=== PATIENT | male | born 1970 | race Caucasian/White ===

== ENCOUNTER 2016-10-25 10:06 | Day surgery (SDC) | payer OTHER ==
[2016-10-24 11:20] VITALS: BMI 42.7
[2016-10-25] MEDS ORDERED: PROPOFOL 40 ML ONE (10:55)
[2016-10-25] MEDS ORDERED: LIDOCAINE HCL/PF 2% SDV 5ML VIAL ONE (10:55)
[2016-10-25] MEDS ORDERED: KETAMINE HCL 500 MG/10 ML VIAL ONE (11:00)
[2016-10-25 12:01] VITALS: TEMP 98.1
[2016-10-25 13:00] VITALS: BP 135/88
[2016-10-25 13:38] VITALS: PULSE 79
--- NOTE | 2016-10-26 10:59 | PATH ---
Surgical Pathology Report Patient Name: ODIN VARGAS [facility]. Rec. #: [id number] /Age/Gender: 1970 (Age: 45) / M Account: [id number] Location: [facility]-ENDOSCOPY Taken: 10/25/2016 Received: 10/25/2016 Reported: 10/26/2016 Physicians: Bairon Garcia D.O. Specimen(s) Received BX DISTAL ESOPHAGUS Clinical History GERD Esophagitis, reflux Final Diagnosis DISTAL ESOPHAGUS, BIOPSY: SQUAMOUS AND GASTRIC MUCOSA WITH CHRONIC INFLAMMATION AND PAPILLOMATOSIS SUGGESTIVE OF REFLUX ESOPHAGITIS. NO INTESTINAL METAPLASIA IDENTIFIED (NO LUDWIG'S IDENTIFIED). Electronically Signed Adrian Womack M.D. Gross Description Received in formalin, labeled "biopsy distal esophagus" are 2 puga, irregular portions of soft tissue measuring 0.1 and 0.3 cm. in greatest dimension. The specimens are submitted in toto in one cassette. /10/25/201610/25/2016
== END 2016-10-25 13:38 | disposition home or self-care (01) ==
LOC: JASU-ENDO 10:06
PROVIDERS: ATTEND Internal Medicine Gastroenterology
PROC: 0DB48ZX Excision of Esophagogastric Junction, Via Natural or Artificial Opening Endoscopic, Diagnostic (ICD-10-PCS; principal; 2016-10-25 11:00)
DX: K25.9 Gastric ulcer, unspecified as acute or chronic, without hemorrhage or perforation (principal)
CPT/HCPCS: 88305-TC

== ENCOUNTER 2016-12-25 08:00 | Day surgery (SDC) | payer OTHER ==
[2016-12-25 08:10] VITALS: BMI 41.6
[2016-12-25] MEDS ORDERED: LIDOCAINE HCL/PF 2% SDV 5ML VIAL ONE (09:14)
[2016-12-25] MEDS ORDERED: PROPOFOL 20 ML ONE ×5 (09:14)
[2016-12-25 09:54] VITALS: TEMP 97.5
--- NOTE | 2016-12-25 10:04 | PN ---
Progress Note (short form) - Note Progress Note: post procedure Mr. Torres states that for a couple of days he had diarrhea alternating with constipation and RLQ pain. He says that it has improved overall. On exam, mild TTP RLQ. He did not seek medical attention CBC/BMP_ and CRP ordered for today and I advised him that if he still is having pain / fevers he will need to be evaluated in an ER setting.
[2016-12-25 10:50] LABS: BASOPHIL 0.7 % (0-2.0); EOSINOPHIL 3.2 % (0-4.5); MCH 29.2 pg (25.7-33.7); MEAN CELL VOLUME 83.4 fl (80-96); NEUTROPHILS 51.5 % (42.8-82.8); PLATELET COUNT 155 K/MM3 (134-434); RDW 13.2 % (11.9-15.9); WHITE BLOOD COUNT 4.8 K/mm3 (4.0-10.0)
[2016-12-25 11:00] VITALS: BP 133/64; PULSE 71
[2016-12-25 11:11] LABS: CALCIUM 8.7 mg/dL (8.5-10.1); COCKROFT - GAULT 163.98
--- NOTE | 2016-12-26 11:48 | PATH ---
Surgical Pathology Report Patient Name: ODIN VARGAS [facility]. Rec. #: [id number] /Age/Gender: 1970 (Age: 46) / M Account: [id number] Location: [facility]-ENDOS[facility] Taken: 12/25/2016 Received: 12/25/2016 Reported: 12/26/2016 Physicians: Bairon Garcia D.O. Specimen(s) Received BX GE JUNCTION Clinical History GERD Hiatal hernia Final Diagnosis GE JUNCTION, BIOPSY: SQUAMOCOLUMNAR JUNCTIONAL MUCOSA WITH ACTIVE AND CHRONIC INFLAMMATION AND INTESTINAL METAPLASIA (SEE COMMENT). NEGATIVE FOR DYSPLASIA. Comment: The histologic findings would be compatible with Landis's esophagus in proper endoscopic settings. Endoscopic correlations and follow up are suggested. Electronically Signed Baldo Santo M.D. Gross Description Received in formalin, labeled "biopsy GE junction" are 4 puga, irregular portions of soft tissue ranging from 0.2-0.7 cm. in greatest dimension. The specimens are submitted in toto in one cassette. /12/25/2016 saudi12/25/2016
== END 2016-12-25 11:00 | disposition home or self-care (01) ==
LOC: JASU-ENDO 08:00
PROVIDERS: ATTEND Internal Medicine Gastroenterology
PROC: 0DB58ZX Excision of Esophagus, Via Natural or Artificial Opening Endoscopic, Diagnostic (ICD-10-PCS; principal; 2016-12-25 09:00)
DX: K22.10 Ulcer of esophagus without bleeding (principal); K44.9 Diaphragmatic hernia without obstruction or gangrene
CPT/HCPCS: 36415; 80048; 85025; 86140; 88305-TC

== ENCOUNTER 2017-10-06 12:10 | Inpatient (IN) | payer OTHER ==
[2017-10-06 12:20] VITALS: BMI 45.6
[2017-10-06] MEDS ORDERED: LOSARTAN POTASSIUM 50 MG TABLET (FP) PO ONE (13:40)
--- NOTE | 2017-10-06 13:41 | PDOC ---
*Physical Exam - Vital Signs Last Vital Signs Temp Pulse Resp BP Pulse Ox 98.2 F 92 H 18 142/95 100 10/06/17 12:14 10/06/17 14:45 10/06/17 14:45 10/06/17 14:45 10/06/17 14:45 <Ivon Morel - Last Filed: 10/06/17 15:18> - Vital Signs Last Vital Signs Temp Pulse Resp BP Pulse Ox 98.2 F 98 H 18 163/83 99 10/06/17 12:14 10/06/17 12:14 10/06/17 12:14 10/06/17 12:14 10/06/17 12:14 - Physical Exam Comments: 10/06/17 14:33 morbidly obesed male in NAD General Appearance: Yes: Appropriately Dressed. No: Apparent Distress HEENT: positive: Normal Voice Neck: positive: Supple Respiratory/Chest: positive: Lungs Clear, Normal Breath Sounds. negative: Respiratory Distress Cardiovascular: positive: Regular Rate, S1, S2 Gastrointestinal/Abdominal: positive: Soft. negative: Tender Extremity: positive: Normal Inspection. negative: Pedal Edema Integumentary: positive: Dry, Warm Neurologic: positive: Fully Oriented, Alert, Normal Mood/Affect <Jesus Cali - Last Filed: 10/06/17 15:50> ED Treatment Course - LABORATORY CBC & Chemistry Diagram: 10/06/17 14:00 10/06/17 14:00 - ADDITIONAL ORDERS Additional order review: Laboratory Results 10/06/17 10/06/17 10/06/17 14:00 14:00 14:00 D-Dimer 311 Sodium 142 Potassium 4.1 Chloride 104 Carbon Dioxide 27 Anion Gap 11 BUN 12 Creatinine 1.1 Creat Clearance w eGFR > 60 Random Glucose 86 Calcium 8.7 Magnesium 1.8 Total Bilirubin 0.3 D AST 29 D ALT 39 D Alkaline Phosphatase 62 D Creatine Kinase 510 H Creatine Kinase Index 0.8 CK-MB (CK-2) 4.353 H Troponin I < 0.02 B-Natriuretic Peptide 21.79 Total Protein 7.1 Albumin 3.7 TSH 3.18 D 10/06/17 14:00 RBC 5.42 MCV 82.5 MCHC 34.7 RDW 13.7 MPV 8.6 Neutrophils % 46.2 Lymphocytes % 41.4 H Monocytes % 8.4 Eosinophils % 3.6 Basophils % 0.4 - Medications Given in the ED: ED Medications Discontinued Medications Generic Name Dose Route Start Last Admin Trade Name Esdras PRN Reason Stop Dose Admin Losartan Potassium 50 mg 10/06/17 13:40 10/06/17 14:07 Cozaar - PO 10/06/17 13:41 50 mg ONCE ONE Administration - Consult/PCP Time Called: 15:18 (called the service for Dr. Thurman) <Ivon Morel - Last Filed: 10/06/17 15:18> - LABORATORY CBC & Chemistry Diagram: 10/06/17 14:00 10/06/17 14:00 <Jesus Cali - Last Filed: 10/06/17 15:50> Medical Decision Making - Medical Decision Making 10/06/17 13:40 46-year-old male, morbidly obese, status post post robotic sleeve gastrectomy 2015, gastritis, diverticulitis, HLD, HTN, hypothyroid, stopped taking all his meds 2 months ago because "I am too young to be taking medications" per pt, s/p negative exercise stress test 2 months ago, status post cath ~10 years ago but does not know results per pt, f/u with Dr Vargas of cardiology, here with profound weakness and dyspnea on exertion for 2 weeks. Complaining of palpitations when laying down only. No chest pain at this time. Develop dry cough today. No lower extremity swelling, fever or chills See exam SANCHEZ w/ fatigue Non-compliant w/ losartan Neg stress test 2 months ago per pt BP 163/83 w/ clear chest/lungs and no edema ?new onset CHF vs ACS, unlikely PE given duration of sxs, doubt metabolic or infectious -ekg -cxr -labs including BNP -anticipate admission 10/06/17 14:45 10/06/17 15:08 Labs unremarkable. Pt remains stable. BP 142/95 after dose of losartan. Will contact pt's cards to discuss dispo 10/06/17 15:38 Case d/w Dr Thurman who states he was the one who recommended that pt have a nuclear stress done done. Wants pt admitted to tele for further w/u. Discussed case with Dr. Solis who is covering for patient's digital strategist senior manager, Dr. Vargas <Jesus Cali - Last Filed: 10/06/17 15:50> *DC/Admit/Observation/Transfer <Ivon Morel - Last Filed: 10/06/17 15:18> - Discharge Dispostion Admit: Yes <Sis Cali-Hayley - Last Filed: 10/06/17 15:50> Diagnosis at time of Disposition: Dyspnea on exertion Fatigue Qualifiers: Fatigue type: unspecified Qualified Code(s): R53.83 - Other fatigue - Discharge Dispostion Condition at time of disposition: Fair - Referrals Referrals: Shayne Thurman MD [Primary Care Provider] - - Patient Instructions - Post Discharge Activity
--- NOTE | 2017-10-06 13:42 | PDOC ---
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 Patient reports that he "was feeling bad last week, like chills, and just did not feel good, but it got a little better the last two days, and then today I just felt terrible." He denies any chest pain but reports that he has shortness of breath and that "I feel like I just can't breathe well after walking a few steps," and he also complains of palpitations. He also complains of a left sided headache that he attributes to his "chronic sinusitis." He denies any URI symptoms last week including sneezing, runny nose, or coughing, but reports that he "just started coughing a little today." Patient admits to being non compliant with medications, stating that he "stopped taking all my medications about 2 months ago," including his hypertension, GERD, and thyroid medications. No recent travel or sick contacts. PAST MEDICAL HISTORY: Denies past medical history FAMILY HISTORY: Denies SOCIAL HISTORY: Denies tobacco, alcohol, illicit drug use. SURGICAL HISTORY: Denies ALLERGIES: No known drug allergies REVIEW OF SYSTEMS General/Constitutional: Generalized fatigue, discomfort. Denies fever or chills. HEENT: Denies change in vision. Denies ear pain or discharge. Denies sore throat. Cardiovascular: Shortness of breath, dyspnea on exertion. Denies chest pain. Respiratory: "A little coughing today." Denies wheezing, or hemoptysis. Gastrointestinal: Denies nausea, vomiting, diarrhea or constipation. Denies rectal bleeding. Genitourinary: Denies dysuria, frequency, or change in urination. Musculoskeletal: Body aches, "my arms feel heavy." Skin and breasts: Denies rash or easy bruising. Neurologic: Denies headache, vertigo, loss of consciousness, or loss of sensation. PHYSICAL EXAM General Appearance: Well-appearing, appropriately dressed. No apparent distress. HEENT: EOMI, PERRLA. No conjunctival pallor. No photophobia, scleral icterus. Respiratory/Chest: Lungs CTAB. No chest tenderness, respiratory distress, accessory muscle use. No crackles, rales, rhonchi, stridor, wheezing, dullness Cardiovascular: Tachycardic to 98. RRR. S1, S2. Vascular Pulses: Dorsalis-Pedis (R): 2+, Dorsalis-Pedis (L): 2+ Gastrointestinal/Abdominal: Normal bowel sounds. Abdomen soft, non-distended. No tenderness or rebound tenderness. No organomegaly, pulsatile mass, guarding , hernia, hepatomegaly, splenomegaly. Lymphatic: No adenopathy, tenderness. Musculoskeletal/Extremities: Normal inspection. FROM of all extremities, normal capillary refill. Pelvis Stable. No CVA tenderness. No tenderness to extremities, pedal edema, swelling, erythema or deformity. Integumentary: Appropriate color, dry, warm. No cyanosis, erythema, jaundice or rash Neurologic: marketing database coordinator II-XII intact. Fully oriented, alert. Appropriate mood/affect. Motor strength 5/5. No appreciable EOM palsy, facial droop or sensory deficit. Past History - Past Medical History Allergies/Adverse Reactions: Allergies Allergy/AdvReac Type Severity Reaction Status Date / Time No Known Drug Allergies Allergy Verified 10/06/17 12:21 Home Medications: Ambulatory Orders Losartan Potassium 50 mg PO DAILY 10/29/13 Levothyroxine [Synthroid -] 0.025 mg PO DAILY 10/19/14 Keiser-3 Acid Ethyl Esters [Lovaza] 1 gm PO DAILY 10/24/16 Topiramate [Topamax] 50 mg PO BID 10/24/16 Omeprazole 20 mg PO DAILY 12/21/16 Ranitidine [Zantac -] 150 mg PO BID #0 tablet 12/25/16 Anemia: No Asthma: No Cancer: No Cardiac Disorders: No CVA: No COPD: No CHF: No Dementia: No Diabetes: Yes (ELEVATED GLUCOSES-LATENT DIABETES) GI Disorders: Yes (RECURRENT DIVERTICULITIS,DIVERTICULosis, barretts esophagus) Disorders: Yes (PROSTATIS) HTN: Yes Hypercholesterolemia: Yes Liver Disease: Yes (NAFLD WITH BIOPSY) Seizures: No Thyroid Disease: Yes - Surgical History Abdominal Surgery: Yes (COLON RESECTION, GASTRIC SLEEVE (2016)) Appendectomy: No Cardiac Surgery: No Cholecystectomy: No Lung Surgery: No Neurologic Surgery: No Orthopedic Surgery: Yes (CARPAL TUNNEL SX) - Immunization History Immunization Up to Date: Yes - Suicide/Smoking/Psychosocial Hx Smoking Status: No Smoking History: Never smoked Have you smoked in the past 12 months: No Number of Cigarettes Smoked Daily: 0 Hx Alcohol Use: No Drug/Substance Use Hx: No Substance Use Type: Alcohol Hx Substance Use Treatment: No *Physical Exam - Vital Signs Last Vital Signs Temp Pulse Resp BP Pulse Ox 98.2 F 98 H 18 163/83 99 10/06/17 12:14 10/06/17 12:14 10/06/17 12:14 10/06/17 12:14 10/06/17 12:14 ED Treatment Course - RADIOLOGY Radiology Studies Ordered: Category Date Time Status CHEST PA & LAT [RAD] Stat Radiology 10/06/17 13:07 Ordered Medical Decision Making - Medical Decision Making 10/06/17 13:42 44 year old obese male with a significant PMH of HTN, HLD, fatty liver disease , umbilical hernia, diverticulitis, 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 Patient is well appearing but given generalized fatigue and new dyspnea on exertion, there is concern for cardiac etiology. Will transfer to main ED. Case discussed with FAHAD Cali, who accepts patient to main ED. *DC/Admit/Observation/Transfer - Referrals Referrals: Shayne Thurman MD [Primary Care Provider] - - Patient Instructions - Post Discharge Activity
[2017-10-06] MEDS ORDERED: LOSARTAN POTASSIUM 25 MG TABLET ONE (14:04)
[2017-10-06 14:08] LABS: BASO % 0.4 % (0-2.0); EOS % 3.6 % (0-4.5); HEMATOCRIT 44.7 % (35.4-49); HEMOGLOBIN 15.5 GM/dL (11.7-16.9); LYMPH % 41.4 % (8-40); MCH 28.7 pg (25.7-33.7); MCHC 34.7 g/dl (32.0-35.9); MEAN CELL VOLUME 82.5 fl (80-96); MEAN PLT VOLUME 8.6 fl (7.5-11.1); MONO % 8.4 % (3.8-10.2); NEUT % 46.2 % (42.8-82.8); PLATELET COUNT 232 K/MM3 (134-434); RBC 5.42 M/mm3 (4.00-5.60); RDW 13.7 % (11.9-15.9); WHITE BLOOD COUNT 6.3 K/mm3 (4.0-10.0)
[2017-10-06 14:29] LABS: CHLORIDE 104 mmol/L (98-107); POTASSIUM 4.1 mmol/L (3.5-5.1); SODIUM 142 mmol/L (136-145)
[2017-10-06 14:34] LABS: ALBUMIN 3.7 g/dl (3.4-5.0); ANION GAP 11 (8-16); BILIRUBIN,TOTAL 0.3 mg/dL (0.2-1.0); BLOOD UREA NITROGEN 12 mg/dL (7-18); CALCIUM 8.7 mg/dL (8.5-10.1); CO2 27 mmol/L (21-32); CREATININE 1.1 mg/dL (0.7-1.3); GLUCOSE,RANDOM 86 mg/dL (74-106); SGOT/AST 29 U/L (15-37); SGPT/ALT 39 U/L (12-78); TOT PROT 7.1 g/dl (6.4-8.2)
[2017-10-06 14:38] LABS: ALK PHOS 62 U/L (45-117); N-TERMINAL BNP 21.79 pg/ml (5-125)
[2017-10-06 15:18] LABS: URINE APPEARANCE CLEAR; URINE BILIRUBIN NEGATIVE (NEGATIVE); URINE BLOOD NEGATIVE (NEGATIVE); URINE COLOR YELLOW; URINE GLUCOSE (UA) NEGATIVE (NEGATIVE); URINE KETONE NEGATIVE (NEGATIVE); URINE LEUK ESTERASE NEGATIVE (NEGATIVE); URINE NITRITE NEGATIVE (NEGATIVE)
[2017-10-06 15:24] LABS: URINE PROTEIN 2+ (NEGATIVE)
[2017-10-06] MEDS ORDERED: IBUPROFEN 400 MG TABLET (FP) PO ONE (19:51)
[2017-10-06] MEDS ORDERED: ACETAMINOPHEN 325 MG TABLET (FP) PO PRN (20:57)
[2017-10-06] MEDS: HEPARIN NA (PORCINE) 5,000 UNITS/ML 1ML VIAL SQ SCH (21:37)
[2017-10-06] MEDS ORDERED: ATORVASTATIN CA 40 MG TABLET (FP) PO SCH (22:00)
--- NOTE | 2017-10-06 22:05 | CON.CARD ---
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 acutely worsened yesterday when he noted dyspnea walking from car to house. Typically walks up 3 flights of stairs daily at work. Has been able to do so slowly without stopping to rest. Stopped going to the gym 2 months ago b/c of sx's of intermittent fatigue/wagoner. had ETT and echo 05/2017 for evaluation of chest discomfort --> no recurrence since. Is followed for his [employer] exposure, has had pulmonary testing done in the past. Results unclear, but patient denies diagnosis of pulmonary disease + palps, regular, pounding sensation. not described as rapid + nausea with dry heaves over the past 2 days. + 1 episode of diarrhea last week. + chronic sinusitis with associated sinus congestion and pain as well as h/a + fevers and sweats today and last week. sleeps with 5 pillows due to juan, stable. no orthopnea, pnd, le edema, bleeding, transient neurologic symptoms. no rashes, visual disturbances, cough pmhx/pshx: per hpi family hx: mom cabg 60s, dad cabg 40s. son with vsd c/b [place] s/p repair social hx: former smoker, no significant etoh. 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: per hpi Ambulatory Orders Losartan Potassium 50 mg PO DAILY 10/29/13 Levothyroxine [Synthroid -] 0.025 mg PO DAILY 10/19/14 per office notes also on lovaza Current Medications Acetaminophen (Tylenol -) 650 mg PO Q4H PRN PRN Reason: PAIN LEVEL 4 - 6 Aspirin (Ecotrin -) 81 mg PO DAILY [facility] Atorvastatin Calcium (Lipitor -) 40 mg PO HS [facility] Last Admin: 10/06/17 21:37 Dose: 40 mg Heparin Sodium (Porcine) (Heparin -) 5,000 unit SQ BID [facility] Last Admin: 10/06/17 21:37 Dose: 5,000 unit Levothyroxine Sodium (Synthroid -) 25 mcg PO 0700 [facility] Losartan Potassium (Cozaar -) 50 mg PO DAILY [facility] Vital Signs - 24 hr 10/06/17 10/06/17 10/06/17 12:14 14:45 15:50 Temperature 98.2 F Pulse Rate 98 H Pulse Rate [ 92 H Right Radial] Respiratory 18 18 Rate Blood Pressure 163/83 Blood Pressure 142/95 [Left Arm] O2 Sat by Pulse 99 100 98 Oximetry (%) 10/06/17 10/06/17 16:00 18:50 Temperature 98.1 F Pulse Rate 81 90 Pulse Rate [ Right Radial] Respiratory 18 20 Rate Blood Pressure 144/98 133/94 Blood Pressure [Left Arm] O2 Sat by Pulse 98 Oximetry (%) Intake & Output 10/04/17 10/05/17 10/06/17 10/07/17 06:59 06:59 07:59 07:59 Weight 300 lb nad, calm jvd tds, neck supple ctab, nl effort rrr nl s1, s2 no mrg + bs soft nt nd, obese, no hsm ext without e/c/c + dp/pt aaox3 no jaundice, diaphoresis CBC, BMP 10/06/17 14:00 10/06/17 14:00 Laboratory Tests 08/02/15 10/06/17 10/06/17 15:08 14:00 14:00 D-Dimer 311 Magnesium Total Bilirubin 0.3 D AST 29 D ALT 39 D Alkaline Phosphatase 62 D Creatine Kinase 323 H D 510 H Creatine Kinase Index 0.8 CK-MB (CK-2) 4.353 H Troponin I < 0.02 B-Natriuretic Peptide 21.79 Albumin 3.7 TSH 3.18 D 10/06/17 14:00 D-Dimer Magnesium 1.8 Total Bilirubin AST ALT Alkaline Phosphatase Creatine Kinase Creatine Kinase Index CK-MB (CK-2) Troponin I B-Natriuretic Peptide Albumin TSH ekg nsr, lad, incomplete rbbb. inferior q waves. similar to priors tele: nsr ETT 05/2017: 10.1 mets. no ischemic changes echo 05/2017: nl lv/rv/valves. cath 04/2004: normal cors cath 06/2007: normal cors mibi 03/2015: no ischemia, nl lvef. 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 + family hx of premature cad. ce's neg x 1, ekg without acute ischemic changes. con't devin. recent echo wnl. stress test in am - con't asa, statin for now. - d-dimer negative. infectious/pulmonary work up per pmd - will review [facility] [place] records for prior pulm testing. 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 htn - con't losartan hl - con't statin for now. if stress test negative, can stop statin and resume prior lovaza dose. juan - declines cpap
[2017-10-06 22:11] LABS: CHOLESTEROL 189 mg/dL (50-200); HDL CHOLESTEROL 33 mg/dL (40-60); LDL CHOLESTEROL (ONLY SJRH) 113 mg/dL (5-100); TRIGLYCERIDES 400 mg/dL (35-160)
[2017-10-06 22:13] LABS: N-TERMINAL BNP 14.37 pg/ml (5-125)
[2017-10-07] MEDS ORDERED: INSULIN (NOVOLOG) ASPART 100 UNITS/ML 10ML VIAL ONE (06:38)
[2017-10-07] MEDS ORDERED: LEVOTHYROXINE NA 25 MCG TABLET (FP) PO SCH (07:00)
[2017-10-07 07:16] LABS: BASO % 1.2 % (0-2.0); EOS % 5.9 % (0-4.5); HEMATOCRIT 43.1 % (35.4-49); HEMOGLOBIN 14.8 GM/dL (11.7-16.9); LYMPH % 49.4 % (8-40); MCH 28.5 pg (25.7-33.7); MCHC 34.3 g/dl (32.0-35.9); MEAN PLT VOLUME 8.8 fl (7.5-11.1); MONO % 7.6 % (3.8-10.2); NEUT % 35.9 % (42.8-82.8); PLATELET COUNT 220 K/MM3 (134-434); RBC 5.19 M/mm3 (4.00-5.60); RDW 13.5 % (11.9-15.9); WHITE BLOOD COUNT 5.6 K/mm3 (4.0-10.0)
[2017-10-07 07:30] LABS: ALBUMIN 3.6 g/dl (3.4-5.0); ANION GAP 7 (8-16); BLOOD UREA NITROGEN 14 mg/dL (7-18); CALCIUM 8.4 mg/dL (8.5-10.1); CHLORIDE 105 mmol/L (98-107); CO2 28 mmol/L (21-32); GLUCOSE,RANDOM 107 mg/dL (74-106); POTASSIUM 4.2 mmol/L (3.5-5.1); SODIUM 140 mmol/L (136-145)
[2017-10-07 07:38] LABS: ALK PHOS 49 U/L (45-117); BILIRUBIN,TOTAL 0.6 mg/dL (0.2-1.0); SGOT/AST 25 U/L (15-37); SGPT/ALT 35 U/L (12-78); TOT PROT 6.5 g/dl (6.4-8.2)
--- NOTE | 2017-10-07 08:10 | HP ---
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 Patient reports that he "was feeling bad last week, like chills, and just did not feel good, but it got a little better, and then yesterday felt terrible." He denies any chest pain but reports that he has shortness of breath and that "I feel like I just can't breathe well after walking a few steps," and he also complains of palpitations. He also complains of a left sided headache that he attributes to his "chronic sinusitis." He denies any URI symptoms last week including sneezing, runny nose , or coughing, but reports that he "just started coughing a little today." Patient admits to being non compliant with medications, stating that he " stopped taking all my medications about 2 months ago," including his hypertension, GERD, and thyroid medications. - Past Medical History Cardiovascular: Yes: HTN, Hyperlipdemia Pulmonary: Yes: Sleep Apnea Gastrointestinal: Yes: Diverticulitis, Gastritis, GERD - Smoking History Smoking history: Never smoked Have you smoked in the past 12 months: No Aproximately how many cigarettes per day: 0 - Alcohol/Substance Use Hx Alcohol Use: No Home Medications - Allergies Allergies/Adverse Reactions: Allergies Allergy/AdvReac Type Severity Reaction Status Date / Time No Known Drug Allergies Allergy Verified 10/06/17 12:21 - Home Medications Home Medications: Ambulatory Orders Losartan Potassium 50 mg PO DAILY 10/29/13 Levothyroxine [Synthroid -] 0.025 mg PO DAILY 10/19/14 Physical Examination Vital Signs: Vital Signs Temperature 97.6 F 10/07/17 06:00 Pulse Rate 78 10/07/17 06:00 Respiratory Rate 17 10/07/17 06:00 Blood Pressure 125/81 10/07/17 06:00 O2 Sat by Pulse Oximetry (%) 95 10/06/17 22:00 Cardiovascular: Yes: Regular Rate and Rhythm Respiratory: Yes: Regular, CTA Bilaterally Gastrointestinal: Yes: Normal Bowel Sounds, Soft Edema: No Labs: CBC, BMP 10/07/17 06:34 10/07/17 06:34 Problem List - Problems (1) Chest pain Assessment/Plan: R/O CAD STRESS TEST CARDIO ON BOARD ASA Code(s): R07.9 - CHEST PAIN, UNSPECIFIED (2) Dyspnea on exertion Assessment/Plan: ABOVE CTA PULM Code(s): R06.09 - OTHER FORMS OF DYSPNEA (3) Fatigue Assessment/Plan: ABOVE Code(s): R53.83 - OTHER FATIGUE Qualifiers: Fatigue type: unspecified Qualified Code(s): R53.83 - Other fatigue (4) HTN (hypertension) Assessment/Plan: ARB AWAIT STRESS TEST Code(s): I10 - ESSENTIAL (PRIMARY) HYPERTENSION (5) Hyperlipemia Assessment/Plan: STATIN Code(s): E78.5 - HYPERLIPIDEMIA, UNSPECIFIED
--- NOTE | 2017-10-07 08:54 | PN ---
Progress Note, Physician - Current Medication List Current Medications: Active Medications Acetaminophen (Tylenol -) 650 mg PO Q4H PRN PRN Reason: PAIN LEVEL 4 - 6 Aspirin (Ecotrin -) 81 mg PO DAILY [facility] Atorvastatin Calcium (Lipitor -) 40 mg PO HS [facility] Last Admin: 10/06/17 21:37 Dose: 40 mg Heparin Sodium (Porcine) (Heparin -) 5,000 unit SQ BID [facility] Last Admin: 10/06/17 21:37 Dose: 5,000 unit Levothyroxine Sodium (Synthroid -) 25 mcg PO 0700 [facility] Last Admin: 10/07/17 06:30 Dose: 25 mcg Losartan Potassium (Cozaar -) 50 mg PO DAILY [facility] - Objective Vital Signs: Vital Signs Temperature 97.6 F 10/07/17 06:00 Pulse Rate 78 10/07/17 06:00 Respiratory Rate 17 10/07/17 06:00 Blood Pressure 125/81 10/07/17 06:00 O2 Sat by Pulse Oximetry (%) 95 10/06/17 22:00 Labs: CBC, BMP 10/07/17 06:34 10/07/17 06:34 - ....Imaging EKG: Other (tele: NSR) Assessment/Plan ekg nsr, lad, incomplete rbbb. inferior q waves. similar to priors ETT 05/2017: 10.1 mets. no ischemic changes echo 05/2017: nl lv/rv/valves. cath 04/2004: normal cors cath 06/2007: normal cors mibi 03/2015: no ischemia, nl lvef. 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 + family hx of premature cad. - no signs of ACS: trop neg x3. ekg without acute ischemic changes. - nuclear stress test today to r/o anginal equivalent - con't asa, statin for now. - recent echo normal. BNP 14. no signs chf. - d-dimer negative, low clinical suspicion for PE. - has had prior PFTs (and ? CT chest) as part of [employer] clinic evaluations--? pulm micahal, per PMD htn - well controlled - con't losartan dyslipidemia: - TG 400, HDL 30s.--cont home lovaza regimen. - con't statin for now. if stress test negative, can reassess statin risk/ benefit for primary prevention (based on ASCVD risk) juan - declines cpap
[2017-10-07] MEDS: ASPIRIN COATED 81 MG TABLET.EC PO SCH ×2 (09:48→13:39)
[2017-10-07] MEDS: LOSARTAN POTASSIUM 50 MG TABLET (FP) PO SCH ×2 (09:48→13:39)
[2017-10-07] MEDS: HEPARIN NA (PORCINE) 5,000 UNITS/ML 1ML VIAL SQ SCH ×2 (09:48→13:39)
[2017-10-07 13:47] VITALS: BP 123/81; PULSE 74; TEMP 97.9
--- NOTE | 2017-10-07 15:58 | PN ---
Progress Note (short form) - Note Progress Note: PULMONARY CONSULTATION DICTATED 10/07/17 IMP DYSPNEA ? CARDIAC? , ? OBSTRUCTIVE AIRWAY DISEASE,MORBID OBESITY OSAS NOT ON CPAP COUGH ? SECONDARY POST-INFECTIOUS HYPER-REACTIVE AIRWAY, ?GERD HYPOTHYROID HLD HTN DM NON-COMPLIANCE PLAN CARDIOLOGY W/U PFTS INHALED BRONCHODILATORS DENTAL EVALUATION FOR ORAL DEVICE WT REDUCTION DR OAKES Problem List - Problems (1) Cough Code(s): R05 - COUGH (2) Dyspnea on exertion Code(s): R06.09 - OTHER FORMS OF DYSPNEA (3) Hyperlipemia Code(s): E78.5 - HYPERLIPIDEMIA, UNSPECIFIED (4) HTN (hypertension) Code(s): I10 - ESSENTIAL (PRIMARY) HYPERTENSION (5) S/P bariatric surgery Code(s): Z98.84 - BARIATRIC SURGERY STATUS (6) Sleep apnea Code(s): G47.30 - SLEEP APNEA, UNSPECIFIED
--- NOTE | 2017-10-07 15:58 | EKG ---
Test Reason : Blood Pressure : / mmHG Vent. Rate : 063 BPM Atrial Rate : 063 BPM P-R Int : 166 ms QRS Dur : 096 ms QT Int : 410 ms P-R-T Axes : 066 -40 001 degrees QTc Int : 419 ms NORMAL SINUS RHYTHM LEFT AXIS DEVIATION ABNORMAL ECG WHEN COMPARED WITH ECG OF 02-AUG-2015 16:46, COMPARED TO EKG NO SIGNIFICANT CHANGE IS FOUND Confirmed by AGUILA NAIDU, ROBIN ([id number]) on 10/07/2017 3:57:44 PM Referred By: Confirmed By:ROBIN SHEEHAN MD
--- NOTE | 2017-10-07 18:29 | CONS ---
PULMONARY CONSULTATION DATE OF CONSULTATION: 10/07/2017 REFERRING PHYSICIAN: Dr. Shayne Thurman HISTORY OF PRESENT ILLNESS: The patient is a 46-year-old white male with past medical history of obstructive sleep apnea, not using BiPAP, chronic sinusitis, gastritis, GERD, hyperlipidemia, hypertension, morbid obesity, hypothyroidism, status post robotic sleeve gastrectomy, diverticulitis, is a nonsmoker. Admitted to [facility] with a complaint of increasing shortness of breath, dyspnea on exertion. The patient states that for the past week or 2 he has not been feeling well. He says it felt like he had chills. He had cough which was nonproductive as well as shortness of breath with minimal exertion. Denies any chest pain, nausea, vomiting, or diaphoresis. He states that he has been having increasing shortness of breath in which with short distance gets markedly dyspneic. He also complains of occasional palpitations. Denies any bronchospasm. He is a nonsmoker. He has a history of exposure to fumes at [employer] at 04/08 and is currently being followed at [facility]. He has a history, as stated before, for which he is noncompliant with his CPAP secondary to chronic sinusitis. Apparently he states that he stopped taking all his medications approximately 2 months ago, including his antihypertensives, GERD medications, thyroid medications. 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 REVIEW OF SYSTEMS: No orthopnea. No PND. Onset of cough, nonproductive. Positive chills, no fever, no hemoptysis, no abdominal pain. Positive dyspnea on exertion. No lower extremity edema. MEDICATIONS PRIOR TO ADMISSION: Include losartan, Synthroid, Lovaza, Topamax and Zantac. CURRENT MEDICATIONS: Include heparin, Cozaar, Lipitor, Ecotrin and Synthroid. SOCIAL HISTORY: Nonsmoker. 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 PHYSICAL EXAMINATION: General: The patient is an obese male, awake, alert, currently in no acute distress. Vital Signs: He is currently afebrile. Blood pressure is 123/81. Respiratory rate is 20. O2 saturation is 95% on room air. HEENT: Normocephalic, atraumatic. Neck: Supple. Heart: Regular, S1, S2. Chest: Clear. Abdomen: Soft. Bowel sounds are positive. Extremities: No cyanosis or edema. LABORATORY: WBC is 5.16, hemoglobin 14.8, hematocrit 43.1 with a platelet count of 220,000. BUN 14, creatinine 1.0. HDL 33, triglycerides 400. TSH 387. Troponin less than 0.02. Chest CTA: No infiltrates, no effusion, no adenopathy, no evidence of PE. IMPRESSION: 1. Dyspnea, etiology to be determined, rule out possible cardiac. 2. Rule out underlying obstructive airway disease secondary to history of exposure to chemicals at [employer] 3. Cough, possible secondary to acute upper respiratory infection, possibly secondary to gastroesophageal reflux disease. 4. Sinusitis. 5. Obstructive sleep apnea not on CPAP (continuous positive airway pressure). 6. Hypothyroidism. 7. History of gastroesophageal reflux disease. PLAN: Inhaled bronchodilators, antitussives, PFT as outpatient. Consider oral device for patient's sleep apnea since patient is unable to tolerate CPAP secondary to sinus disease. Discussed dietary as well as medical compliance. JOHN OAKES M.D. [place]/[id number]
[2017-10-08 14:20] LABS: INSULIN 36.7 uIU/mL (2.6-24.9)
[2017-10-09 16:32] LABS: PROINSULIN 18.4 pmol/L (0.0-10.0)
== END 2017-10-07 16:52 | disposition home or self-care (01) | DRG 204 ==
LOC: JER 12:10 → JERFT 12:10 → JERBED 15:22 → J4S 17:35
PROVIDERS: ADMIT Family Medicine; ATTEND Family Medicine
DX: R06.09 Other forms of dyspnea (principal); Z68.42 Body mass index [BMI] 45.0-49.9, adult; R53.83 Other fatigue; R00.2 Palpitations; I10 Essential (primary) hypertension; E78.5 Hyperlipidemia, unspecified; E11.9 Type 2 diabetes mellitus without complications; G47.30 Sleep apnea, unspecified; K76.0 Fatty (change of) liver, not elsewhere classified; R05 Cough; K42.9 Umbilical hernia without obstruction or gangrene; K57.90 Diverticulosis of intestine, part unspecified, without perforation or abscess without bleeding; K22.70 Barrett's esophagus without dysplasia; N41.8 Other inflammatory diseases of prostate; E03.9 Hypothyroidism, unspecified; I45.19 Other right bundle-branch block; K21.9 Gastro-esophageal reflux disease without esophagitis; E66.01 Morbid (severe) obesity due to excess calories; R07.89 Other chest pain; K29.60 Other gastritis without bleeding; J32.8 Other chronic sinusitis; Z98.84 Bariatric surgery status; Z91.14 Patient's other noncompliance with medication regimen
CPT/HCPCS: 36415; 71046-TC-FY; 71275-TC; 78452-TC; 80053; 80061; 81003; 81015; 82550; 82553; 82962; 83036; 83525; 83721; 83735; 83880; 84443; 84484; 85025; 85379; 87804; 93005; 93010; 93017; 99284-25; A9502; J1644

== ENCOUNTER 2019-10-03 11:20 | Emergency (ER) | payer BC, OTHER ==
[2019-10-03 11:26] VITALS: TEMP 97.9; BMI 36.8
--- NOTE | 2019-10-03 11:59 | PDOC ---
History of Present Illness - General Chief Complaint: Pain, Acute Stated Complaint: RT SIDE PAIN Time Seen by Provider: 10/03/19 11:51 - History of Present Illness Initial Comments: 10/03/19 12:00 48 yo M PMH HTN, HLD, sleep apnea, borderline diabetes, fatty liver disease, umbilical hernia s/p repair, diverticulitis, s/p tumor removal from his thyroid, s/p angioplasty and colectomy, s/p gastric sleeve with reversal into full ga stric bypass in October 2018, presenting with R abdominal pain. States that it began on , initially mild and cramping, but has now progressed to 10/10 cramping pain. Endorses nausea without vomiting. Denies fevers/chills, HOOD, CP, SOB, urinary symptoms, constipation/diarrhea. Past History - Past Medical History Allergies/Adverse Reactions: Allergies Allergy/AdvReac Type Severity Reaction Status Date / Time No Known Drug Allergies Allergy Verified 10/06/17 12:21 Home Medications: Ambulatory Orders Losartan Potassium 50 mg PO DAILY 10/29/13 Levothyroxine [Synthroid -] 0.025 mg PO DAILY 10/19/14 Aspirin Coated [Ecotrin -] 81 mg PO DAILY tablet.ec 10/07/17 Atorvastatin Ca [Lipitor] 40 mg PO HS #30 tablet 10/07/17 Anemia: No Asthma: No Cancer: No Cardiac Disorders: No CVA: No COPD: No CHF: No Dementia: No Diabetes: Yes (ELEVATED GLUCOSES-LATENT DIABETES) GI Disorders: Yes (RECURRENT DIVERTICULITIS,DIVERTICULosis, barretts esophagus) Disorders: Yes (PROSTATIS) HTN: Yes Hypercholesterolemia: Yes Liver Disease: Yes (NAFLD WITH BIOPSY) Seizures: No Thyroid Disease: Yes - Surgical History Abdominal Surgery: Yes (COLON RESECTION, GASTRIC SLEEVE (2016)) Appendectomy: No Cardiac Surgery: No Cholecystectomy: No Lung Surgery: No Neurologic Surgery: No Orthopedic Surgery: Yes (CARPAL TUNNEL SX) - Immunization History Immunization Up to Date: Yes - Psycho Social/Smoking Cessation Hx Smoking Status: No Smoking History: Never smoked Have you smoked in the past 12 months: No Number of Cigarettes Smoked Daily: 0 Hx Alcohol Use: No Drug/Substance Use Hx: No Substance Use Type: Alcohol Hx Substance Use Treatment: No Review of Systems - Review of Systems Comments:: 03/07/20 13:59 GENERAL/CONSTITUTIONAL: denies fever, chills, diaphoresis, generalized weakness, malaise, loss of appetite, weight change HEAD, EYES, EARS, NOSE AND THROAT: denies rhinorrhea, nasal congestion, throat pain, throat swelling, difficulty swallowing, mouth swelling, ear pain, eye pain, visual changes NEUROLOGIC: denies headache, focal weakness or paresthesias, dizziness, unsteady gait, seizure, mental status changes, bladder or bowel incontinence CARDIOVASCULAR: denies chest pain, syncope, palpitations, irregular heart rate, lightheadedness, peripheral edema RESPIRATORY: denies cough, shortness of breath, dyspnea with exertion, orthopnea, wheezing, stridor, hemoptysis GASTROINTESTINAL: endorses R abdominal pain and nausea without vomiting. Denies abdominal distension, nausea, vomiting, diarrhea, constipation, melena, hematochezia GENITOURINARY: denies dysuria, frequency, urgency, hesitancy, hematuria, flank pain, genital pain MUSCULOSKELETAL: denies myalgia, arthralgia, joint swelling, back pain, neck pain SKIN: denies rash, itching, pallor HEMATOLOGIC/IMMUNOLOGIC: denies easy bleeding, easy bruising, lymphadenopathy, frequent infections ENDOCRINE: denies unexplained weight gain, unexplained weight loss, heat intolerance, cold intolerance PSYCHIATRIC: denies anxiety, depression, suicidal or homicidal ideation, hallucinations *Physical Exam - Vital Signs Last Vital Signs Temp Pulse Resp BP Pulse Ox 97.9 F 78 19 149/79 99 10/03/19 11:22 10/03/19 11:22 10/03/19 11:22 10/03/19 11:22 10/03/19 11:22 - Physical Exam 10/03/19 14:00 Gen: well-developed, well-nourished, NAD Neuro: AAOX4, CN II-XII intact, FTN intact, EOMI, PERRLA, 5/5 strength, SILT HEENT: atraumatic, normocephalic, dry mucous membranes Neck: trachea midline, supple CV: regular rate, regular rhythm, no murmurs, rubs, or gallops Pulm: CTA b/l, no wheezing Abd: soft, non-distended, point tenderness in the R middle abdomen MSK: full ROM, intact pulses Extr: no edema, no deformities Skin: warm, dry ED Treatment Course - LABORATORY CBC & Chemistry Diagram: 10/03/19 12:21 10/03/19 12:21 Medical Decision Making - Medical Decision Making 10/03/19 12:13 Patient with point tenderness in the right middle abdomen, significant surgical history. - CBC, CMP - lipase - lactic acid - CT scan abd/pelvis w/ contrast pending Cr 10/03/19 18:09 CT abd/pelvis with appendicitis. Will transfer to [facility]. Discharge - Discharge Information Problems reviewed: Yes Clinical Impression/Diagnosis: Abdominal pain, Appendicitis Condition: Stable Disposition: TRANSFER ACUTE CARE/OTHER HOSP - Admission No - Follow up/Referral Referrals: Shayne Thurman MD [Primary Care Provider] - - Patient Discharge Instructions Additional Instructions: You were seen with abdominal pain. A CT scan was performed, which shows that you have appendicitis. You will be transferred to [facility] for surgical evaluation. Please follow up with your primary care doctor within one week. Return to the ED if you develop new or worsening symptoms. - Post Discharge Activity
[2019-10-03] MEDS ORDERED: LACTATED RINGERS SOLUTION 1,000 ML/1,000 ML INFUS.BAG IV STA (12:10)
[2019-10-03] MEDS ORDERED: ACETAMINOPHEN 1000 MG/100 ML VIAL (NON FORMULARY) IVPB ONE ×2 (12:10→19:19)
[2019-10-03] MEDS ORDERED: ACETAMINOPHEN INJECTION 100 ML IVPB ONE ×2 (12:16→19:37)
[2019-10-03] MEDS ORDERED: morphine CARPU-JECT 4 MG/1 ML DISP.SYRIN IVPUSH ONE ×2 (12:20→18:09)
[2019-10-03 12:43] LABS: BASO % 0.7 % (0-2.0); EOS % 1.8 % (0-4.5); HEMATOCRIT 41.3 % (35.4-49); HEMOGLOBIN 14.3 GM/dL (11.7-16.9); LYMPH % 17.9 % (8-40); MCH 29.3 pg (25.7-33.7); MCHC 34.7 g/dl (32.0-35.9); MEAN CELL VOLUME 84.5 fl (80-96); MEAN PLT VOLUME 9.4 fl (7.5-11.1); MONO % 9.6 % (3.8-10.2); PLATELET COUNT 181 K/MM3 (134-434); RBC 4.89 M/mm3 (4.00-5.60); RDW 13.6 % (11.9-15.9)
--- NOTE | 2019-10-03 12:44 | PDOC ---
Attending Attestation - Resident Resident Name: Zoe Lozano - ED Attending Attestation I have performed the following: I have examined & evaluated the patient, The case was reviewed & discussed with the resident, I agree w/resident's findings & plan, Exceptions are as noted - HPI HPI: 10/03/19 12:42 48-year-old male with history of morbid obesity, hypertension, hyperlipidemia, multiple abdominal surgeries presents with right-sided abdominal pain for the past 3 days associated with nausea, denies vomiting/diarrhea/melena/bright red blood per rectum. - Physicial Exam PE: 10/03/19 12:43 Patient is awake and alert, obese, in no significant distress Normocephalic and atraumatic PERRLA, EOMI, no scleral icterus CTA RRR Abdomen is soft, minimally distended, tympanitic, with right-sided abdominal tenderness to palpation without guarding or rebound - Medical Decision Making 10/03/19 12:44 48-year-old male with history of morbid obesity, multiple abdominal surgeries, hypertension hyperlipidemia presents with abdominal pain associated with nausea. Differential diagnosis includes SBO versus incarcerated hernia versus's appendicitis versus diverticulitis. Will obtain CBC/CMP/UA. Will administer IV fluids and pain meds. Will obtain CT of abdomen pelvis. Will reassess
[2019-10-03 13:14] LABS: ALBUMIN 3.8 g/dl (3.4-5.0); BILIRUBIN,TOTAL 0.9 mg/dL (0.2-1); CALCIUM 8.6 mg/dL (8.5-10.1); CREATININE 0.8 mg/dL (0.55-1.3); POTASSIUM 4.1 mmol/L (3.5-5.1); TOT PROT 6.7 g/dl (6.4-8.2)
[2019-10-03] MEDS ORDERED: morphine SULFATE 4 MG/ML VIAL ONE ×2 (13:32→18:37)
--- NOTE | 2019-10-03 17:12 | PDOC ---
*Physical Exam - Vital Signs Last Vital Signs Temp Pulse Resp BP Pulse Ox 97.9 F 78 19 149/79 99 10/03/19 11:22 10/03/19 11:22 10/03/19 11:22 10/03/19 11:22 10/03/19 11:22 ED Treatment Course - LABORATORY CBC & Chemistry Diagram: 10/03/19 12:21 10/03/19 12:21 - ADDITIONAL ORDERS Additional order review: Laboratory Results 10/03/19 10/03/19 12:28 12:21 Sodium 143 Potassium 4.1 Chloride 108 H Carbon Dioxide 29 Anion Gap 5 L BUN 11.0 Creatinine 0.8 Est GFR (CKD-EPI)AfAm 123.29 Est GFR (CKD-EPI)NonAf 106.38 Random Glucose 89 Lactic Acid 1.1 Calcium 8.6 Total Bilirubin 0.9 AST 29 ALT 46 Alkaline Phosphatase 72 Total Protein 6.7 Albumin 3.8 Lipase 107 10/03/19 12:21 RBC 4.89 MCV 84.5 MCHC 34.7 RDW 13.6 MPV 9.4 Neutrophils % 70.0 D Lymphocytes % 17.9 D Monocytes % 9.6 Eosinophils % 1.8 Basophils % 0.7 - Medications Given in the ED: ED Medications Discontinued Medications Generic Name Dose Route Start Last Admin Trade Name Skyq PRN Reason Stop Dose Admin Acetaminophen 1,000 mg 10/03/19 12:10 10/03/19 12:39 Ofirmev Injection - IVPB 10/03/19 12:11 1,000 mg ONCE ONE Administration Lactated Ringer's 1,000 ml in 1,000 mls @ 1,000 mls/hr 10/03/19 12:10 10/03/19 12:39 Lactated Ringers Solution IV 10/03/19 13:09 1,000 mls/hr ONCE STA Administration Morphine Sulfate 4 mg 10/03/19 12:20 10/03/19 13:56 Morphine Injection - IVPUSH 10/03/19 12:21 4 mg ONCE ONE Administration Medical Decision Making - Medical Decision Making 10/03/19 17:12 Vital Signs Temp Pulse Resp BP Pulse Ox 97.9 F 78 19 149/79 99 10/03/19 11:22 10/03/19 11:22 10/03/19 11:22 10/03/19 11:22 10/03/19 11:22 pt signed out from Dr Rouse - pending CT a/p in summary 48 yo M PMH HTN, HLD, sleep apnea, borderline diabetes, fatty liver disease, umbilical hernia s/p repair, diverticulitis, 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 States that it began on , initially mild and cramping, but has now progressed to 10/10 cramping pain. 10/03/19 17:20 CT with acute appy, no abscess labs and lytes unremarkable ceftriaxone and flagyl for acute appy transfer to 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 accepted for transfer 10/03/19 18:38 Discharge - Discharge Information Problems reviewed: Yes Clinical Impression/Diagnosis: Abdominal pain Qualifiers: Abdominal location: unspecified location Qualified Code(s): R10.9 - Unspecified abdominal pain Appendicitis Qualifiers: Appendicitis type: acute appendicitis Acute appendicitis type: unspecified acute appendicitis type Qualified Code(s): K35.80 - Unspecified acute appendicitis Condition: Stable Disposition: TRANSFER ACUTE CARE/OTHER HOSP - Follow up/Referral Referrals: Shayne Thurman MD [Primary Care Provider] - - Patient Discharge Instructions Additional Instructions: You were seen with abdominal pain. A CT scan was performed, which shows that you have appendicitis. You will be transferred to [facility] for surgical evaluation. Please follow up with your primary care doctor within one week. Return to the ED if you develop new or worsening symptoms. - Post Discharge Activity - Transfer to Acute Care Facility Receiving Facility Name: [facility] Accepting Physician:: Dr Kim [facility]
[2019-10-03] MEDS ORDERED: PIPERACILLIN/TAZOB 3.375 GM 3.375 GM in DEXTROSE 5%-WATER - 50 ML IVPB ONE (18:04)
[2019-10-03] MEDS ORDERED: CEFTRIAXONE 1,000 MG in DEXTROSE 5%-WATER - 50 ML IVPB ONE (18:30)
[2019-10-03] MEDS ORDERED: CEFTRIAXONE 1 GM/50 ML BAG ONE (18:32)
[2019-10-03] MEDS ORDERED: HYDROmorphone HCL CARPU-JECT 2 MG/1 ML DISP.SYRIN IVPUSH ONE (19:03)
--- NOTE | 2019-10-03 19:19 | PDOC ---
*Physical Exam - Vital Signs Last Vital Signs Temp Pulse Resp BP Pulse Ox 97.9 F 71 19 133/76 96 10/03/19 18:46 10/03/19 18:46 10/03/19 11:22 10/03/19 18:46 10/03/19 18:46 <Blas Osborne - Last Filed: 10/03/19 19:59> - Vital Signs Last Vital Signs Temp Pulse Resp BP Pulse Ox 97.9 F 59 L 20 124/66 96 10/03/19 18:46 10/03/19 20:19 10/03/19 20:19 10/03/19 20:19 10/03/19 18:46 <JerriRafaela Peralta - Last Filed: 10/03/19 22:10> ED Treatment Course - LABORATORY CBC & Chemistry Diagram: 10/03/19 12:21 10/03/19 12:21 - ADDITIONAL ORDERS Additional order review: Laboratory Results 10/03/19 10/03/19 12:28 12:21 Sodium 143 Potassium 4.1 Chloride 108 H Carbon Dioxide 29 Anion Gap 5 L BUN 11.0 Creatinine 0.8 Est GFR (CKD-EPI)AfAm 123.29 Est GFR (CKD-EPI)NonAf 106.38 Random Glucose 89 Lactic Acid 1.1 Calcium 8.6 Total Bilirubin 0.9 AST 29 ALT 46 Alkaline Phosphatase 72 Total Protein 6.7 Albumin 3.8 Lipase 107 10/03/19 12:21 RBC 4.89 MCV 84.5 MCHC 34.7 RDW 13.6 MPV 9.4 Neutrophils % 70.0 D Lymphocytes % 17.9 D Monocytes % 9.6 Eosinophils % 1.8 Basophils % 0.7 - Medications Given in the ED: ED Medications Discontinued Medications Generic Name Dose Route Start Last Admin Trade Name Freq PRN Reason Stop Dose Admin Acetaminophen 1,000 mg 10/03/19 12:10 10/03/19 12:39 Ofirmev Injection - IVPB 10/03/19 12:11 1,000 mg ONCE ONE Administration Lactated Ringer's 1,000 ml in 1,000 mls @ 1,000 mls/hr 10/03/19 12:10 10/03/19 12:39 Lactated Ringers Solution IV 10/03/19 13:09 1,000 mls/hr ONCE STA Administration Ceftriaxone Sodium 1,000 mg/ 50 mls @ 100 mls/hr 10/03/19 18:30 10/03/19 18:43 Dextrose IVPB 10/03/19 18:59 100 mls/hr ONCE ONE Administration Morphine Sulfate 4 mg 10/03/19 12:20 10/03/19 13:56 Morphine Injection - IVPUSH 10/03/19 12:21 4 mg ONCE ONE Administration Morphine Sulfate 4 mg 10/03/19 18:09 10/03/19 18:43 Morphine Injection - IVPUSH 10/03/19 18:10 4 mg ONCE ONE Administration <Blas Osborne - Last Filed: 10/03/19 19:59> - LABORATORY CBC & Chemistry Diagram: 10/03/19 12:21 10/03/19 12:21 - ADDITIONAL ORDERS Additional order review: Laboratory Results 10/03/19 10/03/19 12:28 12:21 Sodium 143 Potassium 4.1 Chloride 108 H Carbon Dioxide 29 Anion Gap 5 L BUN 11.0 Creatinine 0.8 Est GFR (CKD-EPI)AfAm 123.29 Est GFR (CKD-EPI)NonAf 106.38 Random Glucose 89 Lactic Acid 1.1 Calcium 8.6 Total Bilirubin 0.9 AST 29 ALT 46 Alkaline Phosphatase 72 Total Protein 6.7 Albumin 3.8 Lipase 107 10/03/19 12:21 RBC 4.89 MCV 84.5 MCHC 34.7 RDW 13.6 MPV 9.4 Neutrophils % 70.0 D Lymphocytes % 17.9 D Monocytes % 9.6 Eosinophils % 1.8 Basophils % 0.7 - Medications Given in the ED: ED Medications Discontinued Medications Generic Name Dose Route Start Last Admin Trade Name Esdras PRN Reason Stop Dose Admin Acetaminophen 1,000 mg 10/03/19 12:10 10/03/19 12:39 Ofirmev Injection - IVPB 10/03/19 12:11 1,000 mg ONCE ONE Administration Acetaminophen 1,000 mg 10/03/19 19:19 10/03/19 19:42 Ofirmev Injection - IVPB 10/03/19 19:20 1,000 mg ONCE ONE Administration Hydromorphone HCl 1 mg 10/03/19 19:03 10/03/19 20:15 Dilaudid Injection - IVPUSH 10/03/19 19:04 1 mg ONCE ONE Administration Lactated Ringer's 1,000 ml in 1,000 mls @ 1,000 mls/hr 10/03/19 12:10 10/03/19 12:39 Lactated Ringers Solution IV 10/03/19 13:09 1,000 mls/hr ONCE STA Administration Piperacillin Sod/Tazobactam 50 mls @ 100 mls/hr 10/03/19 18:04 10/03/19 19:19 Sod 3.375 gm/ Dextrose IVPB 10/03/19 18:33 Not Given ONCE ONE Protocol Ceftriaxone Sodium 1,000 mg/ 50 mls @ 100 mls/hr 10/03/19 18:30 10/03/19 18:43 Dextrose IVPB 10/03/19 18:59 100 mls/hr ONCE ONE Administration Metronidazole 500 mg in 100 mls @ 100 mls/hr 10/03/19 18:32 10/03/19 19:03 Flagyl 500mg Premixed Ivpb - IVPB 10/03/19 19:31 100 mls/hr ONCE ONE Administration Morphine Sulfate 4 mg 10/03/19 12:20 10/03/19 13:56 Morphine Injection - IVPUSH 10/03/19 12:21 4 mg ONCE ONE Administration Morphine Sulfate 4 mg 10/03/19 18:09 10/03/19 18:43 Morphine Injection - IVPUSH 10/03/19 18:10 4 mg ONCE ONE Administration <Rafaela Guthrie - Last Filed: 10/03/19 22:10> Medical Decision Making - Medical Decision Making Received sign out from resident Dr. Lozano. In short, pt is a 48 y/o male presenting with abdominal pain. Awaiting transfer ambulance to [facility] for acute appendicitis. Received Zosyn and Ceftriaxone for abx coverage. Ordered repeat dose of IV Tylenol. Pt left the department via transfer ambulance without further incident. Blas Osborne M.D., PGY2 Emergency Medicine Resident <Blas Osborne - Last Filed: 10/03/19 19:59> - Medical Decision Making pt received flagyl and ceftriaxone. zosyn iniially ordered by resident, dc'd as unnecessary at this time 10/03/19 22:09 <Rafaela Guthrie - Last Filed: 10/03/19 22:10> Discharge - Discharge Information Problems reviewed: Yes <Blas Osborne - Last Filed: 10/03/19 19:59> <Rafaela Guthrie - Last Filed: 10/03/19 22:10> - Discharge Information Clinical Impression/Diagnosis: Abdominal pain Qualifiers: Abdominal location: unspecified location Qualified Code(s): R10.9 - Unspecified abdominal pain Appendicitis Qualifiers: Appendicitis type: acute appendicitis Acute appendicitis type: unspecified acute appendicitis type Qualified Code(s): K35.80 - Unspecified acute appen dicitis Condition: Stable Disposition: TRANSFER ACUTE CARE/OTHER HOSP - Follow up/Referral Referrals: Shayne Thurman MD [Primary Care Provider] - - Patient Discharge Instructions Additional Instructions: You were seen with abdominal pain. A CT scan was performed, which shows that you have appendicitis. You will be transferred to [facility] for surgical evaluation. Please follow up with your primary care doctor within one week. Return to the ED if you develop new or worsening symptoms. - Post Discharge Activity
[2019-10-03] MEDS ORDERED: HYDROmorphone HCl 2 MG/ML VIAL ONE (20:06)
[2019-10-03 20:21] VITALS: BP 124/66; PULSE 59
== END 2019-10-03 20:29 | disposition short-term general hospital (02) ==
LOC: JER 11:20
PROC: 3E033NZ Introduction of Analgesics, Hypnotics, Sedatives into Peripheral Vein, Percutaneous Approach (ICD-10-PCS; principal; 2019-10-03)
PROC: 3E033GC Introduction of Other Therapeutic Substance into Peripheral Vein, Percutaneous Approach (ICD-10-PCS; 2019-10-03)
PROC: 3E0337Z Introduction of Electrolytic and Water Balance Substance into Peripheral Vein, Percutaneous Approach (ICD-10-PCS; 2019-10-03)
PROC: 3E03329 Introduction of Other Anti-infective into Peripheral Vein, Percutaneous Approach (ICD-10-PCS; 2019-10-03)
DX: K37 Unspecified appendicitis (principal); R10.33 Periumbilical pain; E11.65 Type 2 diabetes mellitus with hyperglycemia; K76.0 Fatty (change of) liver, not elsewhere classified; E07.9 Disorder of thyroid, unspecified; K92.9 Disease of digestive system, unspecified; N39.9 Disorder of urinary system, unspecified
CPT/HCPCS: 36415; 74177-TC; 80053; 83605; 83690; 85025; 99285-25; J0131; Q9967

== ENCOUNTER 2023-10-04 20:14 | Inpatient (IN) | payer BC, OTHER ==
[2023-10-04 20:21] VITALS: BMI 38.0
[2023-10-04] MEDS ORDERED: morphine SULFATE 4 MG/ML VIAL ONE (21:33)
[2023-10-04] MEDS: morphine CARPU-JECT 4 MG/1 ML DISP.SYRIN IVPUSH ONE (21:39)
[2023-10-04 22:12] LABS: BASO % 0.5 % (0-2.0); EOS % 2.6 % (0-4.5); HEMOGLOBIN 13.6 GM/dL (11.7-16.9); LYMPH % 29.8 % (8-40); MCH 27.2 pg (25.7-33.7); MEAN CELL VOLUME 79.9 fl (80-96); MEAN PLT VOLUME 8.8 fl (7.5-11.1); MONO % 10.2 % (3.8-10.2); NEUT % 56.9 % (42.8-82.8); PLATELET COUNT 198 10^3/uL (134-434); WHITE BLOOD COUNT 7.4 K/mm3 (4.0-10.0)
[2023-10-04 22:19] LABS: INR 1.03 (0.83-1.09); PROTHROMBIN TIME (PATIENT) 11.9 SEC (9.7-13.0)
[2023-10-04 22:21] LABS: ACTIVATED PTT 28.9 SECONDS (25.2-36.5)
[2023-10-04 22:28] LABS: POTASSIUM 3.9 mmol/L (3.5-5.1)
[2023-10-04 22:31] LABS: ALBUMIN 3.5 g/dl (3.4-5.0); BLOOD UREA NITROGEN 13.9 mg/dL (7-18); CALCIUM 8.9 mg/dL (8.5-10.1)
[2023-10-04 22:34] LABS: CREATININE 0.8 mg/dL (0.55-1.3); PHOSPHOROUS 3.2 mg/dL (2.5-4.9)
[2023-10-04 22:36] LABS: BILIRUBIN,TOTAL 0.5 mg/dL (0.2-1); TOT PROT 6.7 g/dl (6.4-8.2)
[2023-10-04] MEDS: IOHEXOL 180 MG/1 ML ML IT ONE ×2 (22:41)
[2023-10-05] MEDS ORDERED: AMPICILLIN NA/SULBACTAM NA 1.5 GM VIAL ONE (02:04)
[2023-10-05] MEDS: AMPICILLIN NA/SULBACTAM NA 1.5 GM in SODIUM CHLORIDE 100 ML IVPB ONE (02:20)
[2023-10-05] MEDS: DEXTROSE 5%-0.45% SALINE 1,000 ML IV SCH (03:54)
[2023-10-05 09:34] LABS: BASO % 0.4 % (0-2.0); EOS % 3.4 % (0-4.5); HEMATOCRIT 39.7 % (35.4-49); HEMOGLOBIN 13.6 GM/dL (11.7-16.9); LYMPH % 22.8 % (8-40); MCH 27.3 pg (25.7-33.7); MCHC 34.1 g/dl (32.0-35.9); MEAN CELL VOLUME 79.8 fl (80-96); MEAN PLT VOLUME 8.7 fl (7.5-11.1); MONO % 10.2 % (3.8-10.2); NEUT % 63.2 % (42.8-82.8); PLATELET COUNT 189 10^3/uL (134-434); RBC 4.97 M/mm3 (4.00-5.60); WHITE BLOOD COUNT 5.7 K/mm3 (4.0-10.0)
[2023-10-05 09:53] LABS: POTASSIUM 3.9 mmol/L (3.5-5.1)
[2023-10-05 10:02] LABS: CALCIUM 8.9 mg/dL (8.5-10.1)
[2023-10-05 10:03] LABS: BLOOD UREA NITROGEN 8.9 mg/dL (7-18)
[2023-10-05 10:06] LABS: CREATININE 0.6 mg/dL (0.55-1.3)
[2023-10-05] MEDS: AMPICILLIN NA/SULBACTAM NA 1.5 GM in SODIUM CHLORIDE 100 ML IVPB SCH (10:27)
[2023-10-05] MEDS: PANTOPRAZOLE SODIUM 40 MG VIAL IVPUSH SCH (10:27)
[2023-10-05] MEDS: LEVOTHYROXINE SODIUM 100 MCG 5 ML VIAL IVPUSH SCH (10:27)
[2023-10-05] MEDS: morphine SULFATE 4 MG/ML VIAL IVPUSH PRN (10:28)
[2023-10-05 10:56] LABS: URINE APPEARANCE CLEAR; URINE COLOR YELLOW
[2023-10-05 10:57] LABS: URINE BILIRUBIN NEGATIVE (NEGATIVE); URINE GLUCOSE (UA) NEGATIVE (NEGATIVE); URINE KETONE NEGATIVE (NEGATIVE); URINE LEUK ESTERASE NEGATIVE (NEGATIVE); URINE NITRITE NEGATIVE (NEGATIVE); URINE PROTEIN NEGATIVE (NEGATIVE); URINE UROBILINOGEN 0.2 mg/dL (0.2-1.0)
[2023-10-05] MEDS: PIPERACILLIN/TAZOB 4.5 GM 4.5 GM in DEXTROSE 5%-WATER 100 ML IVPB SCH (14:29)
[2023-10-05] MEDS: ACETAMINOPHEN 1000 MG/100 ML BAG IVPB PRN (15:22)
[2023-10-05] MEDS: D5-1/2NS+10 MEQ KCL - 10 MEQ/1,000 ML INFUS.BAG IV SCH (17:49)
[2023-10-07 09:47] LABS: BASO % 0.7 % (0-2.0); EOS % 3.9 % (0-4.5); HEMATOCRIT 41.2 % (35.4-49); HEMOGLOBIN 13.9 GM/dL (11.7-16.9); LYMPH % 20.1 % (8-40); MCH 27.1 pg (25.7-33.7); MCHC 33.8 g/dl (32.0-35.9); MEAN PLT VOLUME 8.6 fl (7.5-11.1); MONO % 8.3 % (3.8-10.2); PLATELET COUNT 204 10^3/uL (134-434); RBC 5.15 M/mm3 (4.00-5.60); RDW 15.2 % (11.9-15.9); WHITE BLOOD COUNT 5.9 K/mm3 (4.0-10.0)
[2023-10-07 10:07] LABS: POTASSIUM 4.4 mmol/L (3.5-5.1)
[2023-10-07 10:09] LABS: BLOOD UREA NITROGEN 5.6 mg/dL (7-18); CALCIUM 8.9 mg/dL (8.5-10.1)
[2023-10-07 10:10] LABS: ALBUMIN 3.3 g/dl (3.4-5.0)
[2023-10-07 10:14] LABS: BILIRUBIN,TOTAL 0.7 mg/dL (0.2-1); TOT PROT 6.6 g/dl (6.4-8.2)
[2023-10-07] MEDS: LORazepam 2 MG/ML SDV VIAL IVPUSH PRN (11:09)
[2023-10-07] MEDS: HEPARIN NA (PORCINE) 5,000 UNITS/ML 1ML VIAL SQ SCH (22:27)
[2023-10-08 08:31] LABS: HEMATOCRIT 40.1 % (35.4-49); HEMOGLOBIN 13.6 GM/dL (11.7-16.9); MCH 27.4 pg (25.7-33.7); MCHC 33.9 g/dl (32.0-35.9); MEAN CELL VOLUME 80.8 fl (80-96); MEAN PLT VOLUME 8.5 fl (7.5-11.1); PLATELET COUNT 208 10^3/uL (134-434); RBC 4.96 M/mm3 (4.00-5.60); RDW 14.9 % (11.9-15.9); WHITE BLOOD COUNT 6.4 K/mm3 (4.0-10.0)
[2023-10-08 08:53] LABS: POTASSIUM 4.2 mmol/L (3.5-5.1)
[2023-10-08 09:03] LABS: ALBUMIN 3.2 g/dl (3.4-5.0); CALCIUM 9.1 mg/dL (8.5-10.1)
[2023-10-08 09:04] LABS: BLOOD UREA NITROGEN 6.1 mg/dL (7-18)
[2023-10-08 09:07] LABS: CREATININE 0.9 mg/dL (0.55-1.3)
[2023-10-08 09:09] LABS: BILIRUBIN,TOTAL 0.8 mg/dL (0.2-1); TOT PROT 6.5 g/dl (6.4-8.2)
[2023-10-08] MEDS ORDERED: ROCURONIUM BROMIDE 50 MG/5 ML SYRINGE ONE ×3 (11:30→14:15)
[2023-10-08] MEDS ORDERED: KETOROLAC TROMETHAMINE 30 MG/1 ML VIAL ONE ×2 (11:31→15:45)
[2023-10-08] MEDS ORDERED: ceFAZolin SODIUM 1 GM VIAL ONE (11:31)
[2023-10-08] MEDS ORDERED: SUCCINYLCHOLINE CHLORIDE 200 MG/10 ML SYRINGE ONE (11:31)
[2023-10-08] MEDS ORDERED: ONDANSETRON 4 MG/2 ML VIAL ONE ×3 (11:31→17:44)
[2023-10-08] MEDS ORDERED: DEXAMETHASONE SOD PHOSPHATE 4 MG/1 ML VIAL ONE (11:31)
[2023-10-08] MEDS ORDERED: ACETAMINOPHEN INJECTION 100 ML IVPB ONE ×2 (11:31→17:07)
[2023-10-08] MEDS ORDERED: LIDOCAINE HCL/PF 2% SDV 5ML VIAL ONE (11:31)
[2023-10-08] MEDS ORDERED: METOCLOPRAMIDE HCL INJECTION 10 MG/2 ML VIAL ONE (11:31)
[2023-10-08] MEDS ORDERED: BUPIVACAINE HCL/PF 0.25% (2.5MG/ML) 10 ML VIAL ONE (12:33)
[2023-10-08] MEDS ORDERED: MIDAZOLAM HCL 2 MG/2 ML SINGLE DOSE VIAL ONE (12:33)
[2023-10-08] MEDS ORDERED: HEPARIN NA (PORCINE) 5,000 UNITS/ML 1ML VIAL ONE (12:33)
[2023-10-08] MEDS ORDERED: PROPOFOL 40 ML ONE (12:33)
[2023-10-08] MEDS ORDERED: cefOXitin SODIUM 2 GM VIAL (RESTRICTED TO ID) IVPB ONE (12:33)
[2023-10-08] MEDS: BUPIVACAINE HCL/PF 0.25% (2.5MG/ML) 10 ML VIAL IJ ONE (13:31)
[2023-10-08] MEDS ORDERED: SUGAMMADEX SODIUM 200 MG/2 ML VIAL ONE (13:44)
[2023-10-08] MEDS ORDERED: PROMETHAZINE HCL 25 MG/1 ML VIAL IVPB PRN (13:56)
[2023-10-08] MEDS ORDERED: ONDANSETRON 4 MG/2 ML VIAL IVPUSH PRN (13:56)
[2023-10-08] MEDS: BACITRACIN ZINC 15 GM TUBE TOPICAL OINTMENT TP ONE (14:22)
[2023-10-08] MEDS ORDERED: INDOCYANINE GREEN 25 MG/10 ML VIAL IVPUSH ONE (14:53)
[2023-10-08] MEDS ORDERED: GLYCOPYRROLATE 0.2 MG/1 ML VIAL ONE (15:46)
[2023-10-08] MEDS ORDERED: NEOSTIGMINE METHYLSULFATE 0.5 MG/1 ML - 10 ML MDV ONE (15:46)
[2023-10-08] MEDS: ACETAMINOPHEN 1000 MG/100 ML BAG IVPB ONE (17:20)
[2023-10-08] MEDS ORDERED: HYDROmorphone HCl 2 MG/ML VIAL ONE (17:36)
[2023-10-08] MEDS: HYDROmorphone HCl 2 MG/ML VIAL IVPUSH ONE ×2 (17:39→18:20)
[2023-10-08] MEDS: ONDANSETRON 4 MG/2 ML VIAL IVPUSH PRN (17:47)
[2023-10-08] MEDS: HYDROmorphone HCl 2 MG/ML VIAL IVPUSH PRN ×2 (19:12→22:53)
[2023-10-08] MEDS ORDERED: oxyCODONE HCL 5 MG TABLET PO PRN (21:14)
[2023-10-08] MEDS: D5-1/2NS+10 MEQ KCL - 10 MEQ/1,000 ML INFUS.BAG IV SCH (21:19)
[2023-10-08] MEDS: KETOROLAC TROMETHAMINE 30 MG/1 ML VIAL IVPUSH SCH (21:20)
[2023-10-08] MEDS: PIPERACILLIN/TAZOB 4.5 GM 4.5 GM in DEXTROSE 5%-WATER 100 ML IVPB SCH (21:21)
[2023-10-08] MEDS: HEPARIN NA (PORCINE) 5,000 UNITS/ML 1ML VIAL SQ SCH (21:21)
[2023-10-08 22:44] VITALS: RESP 18
[2023-10-08] MEDS: ACETAMINOPHEN 650 MG/20.3 ML ORAL SOLUTION (CUPS) PO SCH (22:52)
[2023-10-09] MEDS: KETOROLAC TROMETHAMINE 30 MG/1 ML VIAL IVPUSH SCH (01:11)
[2023-10-09] MEDS: PIPERACILLIN/TAZOB 4.5 GM 4.5 GM in DEXTROSE 5%-WATER 100 ML IVPB SCH (01:11)
[2023-10-09] MEDS: LACTATED RINGERS SOLUTION 1,000 ML IV SCH (01:11)
[2023-10-09 08:56] LABS: BASO % 0.4 % (0-2.0); EOS % 1.1 % (0-4.5); HEMATOCRIT 38.7 % (35.4-49); HEMOGLOBIN 12.6 GM/dL (11.7-16.9); LYMPH % 14.4 % (8-40); MCH 26.5 pg (25.7-33.7); MCHC 32.5 g/dl (32.0-35.9); MEAN CELL VOLUME 81.5 fl (80-96); MEAN PLT VOLUME 8.7 fl (7.5-11.1); MONO % 12.3 % (3.8-10.2); NEUT % 71.8 % (42.8-82.8); PLATELET COUNT 183 10^3/uL (134-434); RBC 4.75 M/mm3 (4.00-5.60); RDW 15.3 % (11.9-15.9); WHITE BLOOD COUNT 6.5 K/mm3 (4.0-10.0)
[2023-10-09 09:08] LABS: POTASSIUM 3.8 mmol/L (3.5-5.1)
[2023-10-09] MEDS: LEVOTHYROXINE SODIUM 100 MCG 5 ML VIAL IVPUSH SCH (09:10)
[2023-10-09] MEDS: PANTOPRAZOLE SODIUM 40 MG VIAL IVPUSH SCH (09:10)
[2023-10-09 09:12] LABS: ALBUMIN 2.6 g/dl (3.4-5.0); BLOOD UREA NITROGEN 6.8 mg/dL (7-18)
[2023-10-09 09:14] LABS: CREATININE 0.9 mg/dL (0.55-1.3)
[2023-10-09 09:17] LABS: BILIRUBIN,TOTAL 0.7 mg/dL (0.2-1); TOT PROT 5.6 g/dl (6.4-8.2)
[2023-10-09] MEDS: oxyCODONE HCL 5 MG TABLET PO PRN (11:37)
[2023-10-11 05:58] VITALS: BP 111/72; PULSE 61; TEMP 98.2
[2023-10-11 09:11] LABS: BASO % 1.1 % (0-2.0); EOS % 6.7 % (0-4.5); HEMATOCRIT 37.7 % (35.4-49); HEMOGLOBIN 12.5 GM/dL (11.7-16.9); LYMPH % 21.1 % (8-40); MCH 26.9 pg (25.7-33.7); MCHC 33.2 g/dl (32.0-35.9); MEAN PLT VOLUME 8.5 fl (7.5-11.1); MONO % 9.6 % (3.8-10.2); NEUT % 61.5 % (42.8-82.8); PLATELET COUNT 227 10^3/uL (134-434); RBC 4.66 M/mm3 (4.00-5.60); RDW 15.3 % (11.9-15.9); WHITE BLOOD COUNT 5.6 K/mm3 (4.0-10.0)
[2023-10-11 09:50] LABS: POTASSIUM 4.1 mmol/L (3.5-5.1)
[2023-10-11 10:07] LABS: ALBUMIN 2.8 g/dl (3.4-5.0); TOT PROT 6.3 g/dl (6.4-8.2)
[2023-10-11 10:08] LABS: BILIRUBIN,TOTAL 0.4 mg/dL (0.2-1); BLOOD UREA NITROGEN 6.7 mg/dL (7-18); CREATININE 0.8 mg/dL (0.55-1.3)
[2023-10-11 10:15] LABS: CALCIUM 8.9 mg/dL (8.5-10.1)
== END 2023-10-11 11:58 | disposition home or self-care (01) | DRG 331 ==
LOC: JER 20:14 → JERBED 10-05 01:39 → J8W 10-05 04:12 → OBSVTOIN 10-05 18:42
PROVIDERS: ADMIT Family Medicine; ATTEND Family Medicine
PROC: 0DTF4ZZ Resection of Right Large Intestine, Percutaneous Endoscopic Approach (ICD-10-PCS; principal; 2023-10-08 13:00)
DX: K35.33 Acute appendicitis with perforation, localized peritonitis, and gangrene, with abscess (principal); K63.89 Other specified diseases of intestine; E03.9 Hypothyroidism, unspecified; E78.5 Hyperlipidemia, unspecified; I10 Essential (primary) hypertension; E66.9 Obesity, unspecified; Z68.38 Body mass index [BMI] 38.0-38.9, adult; K36 Other appendicitis; K21.9 Gastro-esophageal reflux disease without esophagitis
CPT/HCPCS: 36415; 74177-TC; 74182-TC; 80048; 80053; 81003; 82272; 83605; 83690; 83735; 84100; 85025; 85027; 85610; 85730; 86140; 86705; 86708; 86709; 86803; 86850; 86900; 86901; 87040; 87086; 87340; 87517; 88307-TC; 93005; 93010; 93970-TC; 94760; 97116-GP; 97161-GP; 99285-25; G0378; J0131; J1644; Q9967

== ENCOUNTER 2023-10-14 14:58 | Emergency (ER) | payer BC, OTHER ==
[2023-10-14 15:09] VITALS: BP 133/73; PULSE 78; RESP 18; TEMP 98.6; BMI 36.8
[2023-10-14] MEDS ORDERED: ACETAMINOPHEN INJECTION 100 ML IVPB ONE (17:33)
[2023-10-14] MEDS: ACETAMINOPHEN 1000 MG/100 ML BAG IVPB ONE (18:25)
[2023-10-14] MEDS: SODIUM CHLORIDE 0.9% 500 ML INFUS.BAG IV ONE (18:26)
[2023-10-14 18:32] LABS: HEMATOCRIT 37.3 % (35.4-49); HEMOGLOBIN 12.6 GM/dL (11.7-16.9); LYMPH % 33.1 % (8-40); MCH 27.2 pg (25.7-33.7); MCHC 33.7 g/dl (32.0-35.9); MEAN CELL VOLUME 80.6 fl (80-96); MEAN PLT VOLUME 7.9 fl (7.5-11.1); MONO % 8.6 % (3.8-10.2); NEUT % 53.3 % (42.8-82.8); PLATELET COUNT 271 10^3/uL (134-434); RBC 4.63 M/mm3 (4.00-5.60); RDW 15.3 % (11.9-15.9); WHITE BLOOD COUNT 6.8 K/mm3 (4.0-10.0)
[2023-10-14 18:38] LABS: INR 1.14 (0.83-1.09); PROTHROMBIN TIME (PATIENT) 13.2 SEC (9.7-13.0)
[2023-10-14 18:41] LABS: ACTIVATED PTT 33.3 SECONDS (25.2-36.5)
[2023-10-14 19:05] LABS: BLOOD UREA NITROGEN 20.2 mg/dL (7-18); CALCIUM 9.2 mg/dL (8.5-10.1)
[2023-10-14 19:06] LABS: ALBUMIN 3.3 g/dl (3.4-5.0)
[2023-10-14 19:09] LABS: CREATININE 0.8 mg/dL (0.55-1.3)
[2023-10-14 19:10] LABS: BILIRUBIN,TOTAL 0.2 mg/dL (0.2-1); TOT PROT 7.1 g/dl (6.4-8.2)
[2023-10-14 19:13] LABS: VENOUS BASE EXCESS 0.6 mmol/L (-2-2); VENOUS O2 SATURATION 62.2 % (70-80); VENOUS PCO2 48.6 mmHg (38-52); VENOUS PH 7.358 (7.310-7.410)
== END 2023-10-14 22:17 | disposition home or self-care (01) ==
LOC: JER 14:58
PROC: 3E033NZ Introduction of Analgesics, Hypnotics, Sedatives into Peripheral Vein, Percutaneous Approach (ICD-10-PCS; principal; 2023-10-14)
DX: R10.32 Left lower quadrant pain (principal)
CPT/HCPCS: 36415; 71046-TC-FY; 74177-TC; 80053; 82803; 83605; 84484; 85025; 85610; 85730; 86140; 86850; 86900; 86901; 87040; 93005; 93010; 99285-25; J0131; Q9967

== ENCOUNTER 2024-05-07 14:33 | Emergency (ER) | payer BC, OTHER ==
[2024-05-07 14:41] VITALS: BMI 39.5
[2024-05-07] MEDS ORDERED: ONDANSETRON 4 MG/2 ML VIAL ONE (15:44)
[2024-05-07] MEDS ORDERED: ACETAMINOPHEN INJECTION 100 ML ONE (15:44)
[2024-05-07 15:49] LABS: BASO % 0.8 % (0-2.0); EOS % 3.2 % (0-4.5); HEMATOCRIT 40.5 % (35.4-49); HEMOGLOBIN 13.6 GM/dL (11.7-16.9); LYMPH % 40.5 % (8-40); MCH 26.9 pg (25.7-33.7); MCHC 33.6 g/dl (32.0-35.9); MEAN CELL VOLUME 80.1 fl (80-96); MEAN PLT VOLUME 8.4 fl (7.5-11.1); MONO % 10.4 % (3.8-10.2); NEUT % 45.1 % (42.8-82.8); PLATELET COUNT 202 10^3/uL (134-434); RBC 5.05 M/mm3 (4.00-5.60); RDW 14.5 % (11.9-15.9); WHITE BLOOD COUNT 5.4 K/mm3 (4.0-10.0)
[2024-05-07] MEDS: ACETAMINOPHEN 1000 MG/100 ML BAG IVPB ONE (15:51)
[2024-05-07] MEDS: SODIUM CHLORIDE 0.9% 500 ML INFUS.BAG IV ONE (15:51)
[2024-05-07] MEDS: ONDANSETRON 4 MG/2 ML VIAL IVPUSH ONE (15:51)
[2024-05-07 16:15] LABS: POTASSIUM 4.1 mmol/L (3.5-5.1)
[2024-05-07 16:17] LABS: ALBUMIN 3.8 g/dl (3.4-5.0)
[2024-05-07 16:20] LABS: CREATININE 0.9 mg/dL (0.55-1.3)
[2024-05-07 16:22] LABS: BILIRUBIN,TOTAL 0.4 mg/dL (0.2-1); TOT PROT 6.6 g/dl (6.4-8.2)
[2024-05-07 16:32] LABS: BLOOD UREA NITROGEN 20.8 mg/dL (7-18)
[2024-05-07 18:06] VITALS: BP 141/88; PULSE 81; RESP 18; TEMP 98.2
== END 2024-05-07 18:05 | disposition home or self-care (01) ==
LOC: JER 14:33
PROC: 3E033NZ Introduction of Analgesics, Hypnotics, Sedatives into Peripheral Vein, Percutaneous Approach (ICD-10-PCS; principal; 2024-05-07)
PROC: 3E033GC Introduction of Other Therapeutic Substance into Peripheral Vein, Percutaneous Approach (ICD-10-PCS; 2024-05-07)
DX: K52.9 Noninfective gastroenteritis and colitis, unspecified (principal); R10.31 Right lower quadrant pain; R11.0 Nausea; K59.00 Constipation, unspecified
CPT/HCPCS: 36415; 74177-TC; 80053; 83605; 83690; 85025; 99285-25; J0131; Q9967

== ENCOUNTER 2024-07-24 04:33 | Day surgery (SDC) | payer BC, OTHER ==
[2024-07-21 10:12] VITALS: BMI 39.1
[2024-07-24 06:43] VITALS: RESP 20
[2024-07-24] MEDS ORDERED: LIDOCAINE HCL 1%, 10 MG/ML (20ML VIAL) ONE (07:23)
[2024-07-24] MEDS ORDERED: BUPIVACAINE HCL/PF 0.5% (5MG/ML) 10 ML VIAL ONE (07:24)
[2024-07-24 07:29] LABS: HEMATOCRIT 44.3 % (35.4-49); HEMOGLOBIN 14.6 GM/dL (11.7-16.9); MCH 26.7 pg (25.7-33.7); MCHC 32.9 g/dl (32.0-35.9); MEAN CELL VOLUME 81.2 fl (80-96); MEAN PLT VOLUME 8.6 fl (7.5-11.1); PLATELET COUNT 212 10^3/uL (134-434); RBC 5.46 M/mm3 (4.00-5.60); RDW 15.3 % (11.9-15.9)
[2024-07-24 07:36] LABS: INR 0.93 (0.83-1.09); PROTHROMBIN TIME (PATIENT) 10.7 SEC (9.7-13.0)
[2024-07-24] MEDS ORDERED: PROPOFOL 20 ML ONE (08:11)
[2024-07-24] MEDS ORDERED: MIDAZOLAM HCL 2 MG/2 ML SINGLE DOSE VIAL ONE (08:13)
[2024-07-24] MEDS: ceFAZolin SODIUM 1 GM VIAL IVPB ONE (08:15)
[2024-07-24] MEDS ORDERED: LIDOCAINE 1%/EPI 1:100000 (20 ML MULTI DOSE VIAL) ONE (08:17)
[2024-07-24] MEDS ORDERED: KETAMINE HCL 200 MG/20 ML VIAL ONE (08:17)
[2024-07-24] MEDS: LIDOCAINE 1%/EPI 1:100000 (50 ML MULTI DOSE VIAL) NR ONE (08:30)
[2024-07-24] MEDS: BUPIVACAINE HCL/PF 0.5% (5 MG/ML) 30 ML VIAL IJ ONE (08:30)
[2024-07-24 12:15] VITALS: BP 140/78; PULSE 70; TEMP 98
== END 2024-07-24 12:00 | disposition home or self-care (01) ==
LOC: JASU-SURG 04:33
PROVIDERS: ATTEND Surgery
PROC: 0JB70ZZ Excision of Back Subcutaneous Tissue and Fascia, Open Approach (ICD-10-PCS; principal; 2024-07-24 08:00)
DX: L72.3 Sebaceous cyst (principal)
CPT/HCPCS: 36415; 85027; 85610; 88304-TC